=== PATIENT | female | born 1970 | race Caucasian/White ===

== ENCOUNTER 2021-10-27 13:18 | Emergency (ER) | payer OTHER ==
[~2021-10-27] VITALS: Ht 157.5 cm; Wt 39.0 kg
--- NOTE | 2021-10-27 14:00 | NUR ---
PT BIB ,LOSING WEIGHT SINCE MAY(107 LBS), NOW SHE'S 86 LBS, PT HAS LOSS OF APPETITE, POOR PO INTAKE, NOTED A LUMP IN RIGHT SIDE OF ABDOMEN, WEARING DIAPER DUE TO CHRONIC DIARRHEA. PT A/OX4. TOLERATING R/A WELL. DENIES PAIN AT THIS TIME. CONNECTED PT TO POX AND MONITOR.
[2021-10-27] MEDS ORDERED: IV NS 0.9% 500 ML BAG IV ONE (15:30)
--- NOTE | 2021-10-27 15:37 | NUR ---
DR GRIFFITH AT THE BEDSIDE
--- NOTE | 2021-10-27 15:53 | NUR ---
LAC #20G S/L; PATENT AND INTAC.T IVF NS INFUSING
--- NOTE | 2021-10-27 15:53 | NUR ---
IV LINE IS ESTABLISHED, BLOOD SPECIMEN COLLECTED AND SENT TO THE LAB. THE LINE IS SALINE LOCKED.
[2021-10-27] MEDS ORDERED: IOHEXOL-300 100 ML VIAL IV ONE (15:54)
[2021-10-27] MEDS ORDERED: CT SWABBABLE VALVE TRANS SET 1 EA INFUS.SET MC ONE (15:54)
[2021-10-27] MEDS ORDERED: IV NS 0.9% 250 ML IV ONE (15:54)
--- NOTE | 2021-10-27 15:58 | NUR ---
THE PATIENT IS TAKEN TO CT
[2021-10-27 15:59] LABS: BASOPHILS % (AUTO) 0.7 % (0.0-2.0); EOSINOPHILS % (AUTO) 0.4 % (0.0-6.0); HEMATOCRIT 35 % (33-45); HEMOGLOBIN 11.9 g/dL (11.5-14.8); LYMPHOCYTES # (AUTO) 1.7 K/uL (0.8-4.8); LYMPHOCYTES % (AUTO) 28.3 % (20.0-44.0); MEAN CORPUSCULAR HGB CONC 34 g/dl (31.0-36.0); MEAN CORPUSCULAR VOLUME 104 fL (82-100); MONOCYTES # (AUTO) 0.5 K/uL (0.1-1.30); MONOCYTES % (AUTO) 7.6 % (2.0-12.0); NEUTROPHILS # (AUTO) 3.9 K/uL (1.8-8.9); PLATELET COUNT (AUTO) 155 K/uL (150-450); RED BLOOD CELL COUNT(AUTO) 3.41 MIL/uL (4.0-5.2); WHITE BLOOD COUNT (AUTO) 6.2 K/uL (4.3-11.0)
--- NOTE | 2021-10-27 16:11 | NUR ---
PT RETURNED TO ER BED [address]
--- NOTE | 2021-10-27 16:14 | NUR ---
PT NOT ABLE TO PROVIDE URINE SAMPLE AT THIS TIME; WILL TRY AGAIN LATER
[2021-10-27 16:19] LABS: CALCIUM, SERUM 8.8 mg/dL (8.5-10.1); CREATININE 0.7 mg/dL (0.6-1.3); POTASSIUM 3.7 mmol/L (3.5-5.1)
[2021-10-27 16:24] LABS: ALBUMIN 2.5 g/dL (3.4-5.0); BILIRUBIN,DIRECT 0.7 mg/dL (0.0-0.2); BILIRUBIN,TOTAL 1.4 mg/dL (0.2-1.0); TOTAL PROTEIN, SERUM 6.6 g/dL (6.4-8.2)
--- NOTE | 2021-10-27 17:23 | NUR ---
COVID SWAB DONE AND SENT TO THE LAB
--- NOTE | 2021-10-27 17:28 | NUR ---
URINE COLLECTED AND SENT TO THE LAB
[2021-10-27] MEDS ORDERED: Thiamine 100 MG in IV D5W 50 ML IV SCH (17:30)
[2021-10-27] MEDS ORDERED: IV NS 0.9% 1,000 ML BAG IV ONE (17:30)
--- NOTE | 2021-10-27 17:50 | NUR ---
US TECH AT PT'S BEDSIDE
[2021-10-27 18:11] LABS: BILIRUBIN,URINE SMALL (NEGATIVE); COLOR,URINE YELLOW (YELLOW); LEUKOCYTE ESTERASE ,URINE Negative (NEGATIVE); NITRITE, URINE Negative (NEGATIVE); PH,URINE 5.5 (5.0-8.0); PROTEIN,URINE 30 mg/dl (NEGATIVE); UGLUCOSE Negative (NEGATIVE)
[2021-10-27 18:13] LABS: BACTERIA,URINE Rare /HPF (None Seen); RBC,URINE NONE SEEN /HPF (0-2); SQUAMOUS EPITHELIAL CELL,UR Few /HPF (None Seen); WBC,URINE NONE SEEN /HPF (0-3)
--- NOTE | 2021-10-27 19:00 | NUR ---
CALLED COMMUNICATION TECHNICIAN AND WAS NOTIFIED THAT THE DIAGNOSIS OF THE PT IS NOT ADIQUATE FOR THE PT TO BE GIVEN AUTHORIZATION. WILL ASK DR. DUCKWORTH AND ASK FOR AN ALTERNATE DIAGNOSIS.
[2021-10-27] MEDS ORDERED: PIPERACILLIN /TAZOBACTAM 3.375 G in IV D5W 50 ML IV ONE (23:00)
--- NOTE | 2021-10-28 00:23 | NUR ---
BECCA ACHARYA (SON)
[2021-10-28] MEDS ORDERED: PIPERACILLIN /TAZOBACTAM 3.375 G VIAL IV ONE (00:24)
--- NOTE | 2021-10-28 01:09 | NUR ---
PT ACCEPTED TO [facility] BY DR ROMAN. MS [id number]. # FOR REPORT [phone].
--- NOTE | 2021-10-28 01:10 | NUR ---
AMBULANCE AUTH FOR [facility] OR [facility]. [id number]
--- NOTE | 2021-10-28 01:38 | NUR ---
PT IS SCHEDULED FOR TRANSPORT TO [facility]IA [facility] WITHIN AN HOUR.
--- NOTE | 2021-10-28 02:08 | NUR ---
REPORT GIVEN TO KEVEN CEBALLOS
--- NOTE | 2021-10-28 02:23 | NUR ---
GAVE REPORT TO EMS
[2021-10-28 02:32] VITALS: BP 97/63
--- NOTE | 2021-10-28 02:40 | NUR ---
PT PICKED UP BY [facility]. V/S STABLE AT TIME OF TRANSFER. ALL PT PAPERWORK AND BELONGINGS TRANSFERRED WITH PATIENT.
--- NOTE | 2021-10-28 02:45 | NUR ---
RECIEVED UPDATED LACTIC ACID 4.4. CALLED SYLVIA BACA RN AND RELAYED RESULTS. UPDATED LABS FAXED.
== END 2021-10-28 02:40 | disposition short-term general hospital (02) ==
LOC: ER 13:41
DX: K52.9 Noninfective gastroenteritis and colitis, unspecified (principal); E87.1 Hypo-osmolality and hyponatremia; Z20.822 Contact with and (suspected) exposure to COVID-19; I95.9 Hypotension, unspecified; M62.59 Muscle wasting and atrophy, not elsewhere classified, multiple sites; G62.9 Polyneuropathy, unspecified; F10.10 Alcohol abuse, uncomplicated
CPT/HCPCS: 36415; 70450; 71045; 74177; 76705; 80048; 80076; 80307; 81001; 82140; 83605 ×2; 83690; 85025; 87040 ×2; 87081; 87086; 87426; 96361; 96365; 96367; 99285; C9803; J2543; J3411; J7030; J7040; J7050; J7060; Q9967